=== PATIENT | male | born 1970 | race Caucasian/White ===

== ENCOUNTER → 2019-03-01 | Outpatient (CLI) | payer OTHER ==
[~2019-03-01] MED LIST: AZIT250T PO; PRED50TA PO
--- NOTE | 2019-03-01 16:21 | RAD ---
Right clavicle, 2 views, 03/01/2018: HISTORY: Old fracture There is an old fracture of the mid to distal aspect of the right clavicle with overriding of the fracture fragments. The fracture appears nonunited. No recent fracture is seen. 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 Electronically signed by: Domenico Ceja MD (03/01/2019 4:18 PM) [facility]
== END | disposition home or self-care (01) ==
LOC: PMG 10:30
PROVIDERS: ATTEND Registered Nurse
DX: S42.031K Displaced fracture of lateral end of right clavicle, subsequent encounter for fracture with nonunion (principal); X58.XXXD Exposure to other specified factors, subsequent encounter; Z87.891 Personal history of nicotine dependence
CPT/HCPCS: 73000

== ENCOUNTER 2019-03-05 00:40 | Emergency (ER) | payer OTHER ==
[~2019-03-05] VITALS: Ht 175.3 cm; Wt 69.0 kg
--- NOTE | 2019-03-05 00:47 | ED.ADGEN ---
Past History Past Medical History: Bronchitis, Pneumonia Smoking: Cigarettes Adult General Chief Complaint Chief Complaint ".. I am at the [facility].. I got thirty days.. after serving 32 yrs.in the the [facility].. .. I ve been working.. and staying clean.. so I got to go home for the holiday... but I started getting sick on. .. tuesday... wheezing.. cough, fever, chills. ..nausea... I hurt everywhere.. my legs.. I short of breath.. I just overall sick.. I usually very healthy. .. I work out every day.. played hand ball almost every day.. but. .. 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 [employer]... "..." I am pushing fluids.. ".. " I noticed my piss turned red today...." ". I just feeling really sick..." HPI HPI Patient is a 48 year old male [facility] inmate. who presents with above hx and complaints fever, chills, cough, wheezing, myalgia, arthralgia, malaise, red urine, fatigue and shortness of breath. Patient obviously having rigors, dyspneic and tachycardic. Patient states he is normally very healthy. The patient's state he worked out every day in intermediate. . Has traveled multiple presents the past 32 years. No history of HIV or immunosuppression. No specific ill contacts. He has never had any history of kidney stones. No hx of coagulopathy with him or family members. There is no family history kidney stones with father was in the 60s. No history of cardiac disease. Patient takes no medications. Patient does smoke tobacco. Patient denies any illicit drug or alcohol use. Patient denies any trauma. Review of Systems Review of Systems Constitutional: Complains fever or chills [] Eyes: Denies change in visual acuity, redness, or eye pain [] HENT: Mild nasal congestion and sore throat [] Respiratory: Complains of cough that is productive and he has shortness of breath [] Cardiovascular: No additional information not addressed in HPI [] GI: Denies abdominal pain, nausea, vomiting, bloody stools or diarrhea [] : Denies dysuria or hematuria [] Musculoskeletal: Complains of generalized back pain , joint pain []and muscle pain. Feeling weak all over. Integument: Denies rash or skin lesions [] Neurologic: Denies headache, focal weakness or sensory changes [] Endocrine: Denies polyuria or polydipsia [] All other systems were reviewed and found to be within normal limits, except as documented in this note. Family History Family History Father renal stones , cardiac 60's in wheel chair. Current Medications Current Medications Current Medications Medications (Trade) Dose Ordered Sig/Dana Start Time Stop Time Status Last Admin Dose Admin Albuterol/ Ipratropium (Duoneb) 3 ml 1X ONCE 03/05/19 01:00 03/05/19 01:53 DC 03/05/19 01:27 3 ML Aspirin (Children'S Aspirin) 324 mg 1X ONCE 03/05/19 01:00 03/05/19 01:54 DC 03/05/19 02:24 324 MG Azithromycin (Zithromax) 500 mg 1X ONCE 03/05/19 01:30 03/05/19 01:54 DC 03/05/19 02:24 500 MG Ceftriaxone Sodium 1 gm/ Sodium Chloride 50 ml @ 100 mls/hr 1X ONCE 03/05/19 02:00 03/05/19 02:29 DC 03/05/19 02:24 100 MLS/HR Ceftriaxone Sodium (Rocephin) 1 gm STK-MED ONCE 03/05/19 02:18 03/05/19 02:19 DC Ketorolac Tromethamine (Toradol 15mg Vial) 15 mg STK-MED ONCE 03/05/19 02:19 03/05/19 02:20 DC Ketorolac Tromethamine (Toradol 30mg Vial) 30 mg 1X ONCE 03/05/19 01:00 03/05/19 01:54 DC 03/05/19 01:00 30 MG Lactated Ringer's 1,000 ml @ 1,000 mls/hr Q1H 03/05/19 01:00 03/05/19 01:59 DC 03/05/19 02:22 1,000 MLS/HR Methylprednisolone Sodium Succinate (SOLU-Medrol 125MG VIAL) 125 mg 1X ONCE 03/05/19 01:00 03/05/19 01:54 DC 03/05/19 02:23 125 MG Sodium Chloride 50 ml @ As Directed STK-MED ONCE 03/05/19 02:18 03/05/19 02:19 DC See Nursing for home meds Allergies Allergies PCN- Physical Exam Physical Exam Constitutional: Well developed, well nourished, in acute distress, ill appearance. []Chills and rigors. HENT: Normocephalic, atraumatic, bilateral external ears normal, oropharynx moist, mild pharyngeal injection, no oral exudates, nose mild clear rhinorrhea. Eyes: PERRLA, EOMI, conjunctiva normal, no discharge. [] Neck: Normal range of motion, no tenderness, supple, no stridor. [] Cardiovascular:Tachycardia, Heart rate, regular rhythm, no murmur [] Lungs & Thorax: Bilateral breath sounds equal apexes with few scattered wheezes on auscultation [] Abdomen: Bowel sounds normal, soft, no tenderness, no masses, no pulsatile masses. [] Skin: Warm, diaphoretic, no erythema, no rash. Multiple tattoos. Back: No tenderness, no CVA tenderness. [] Extremities: Generalize muscle tenderness, no cyanosis, no clubbing, ROM intact, no edema. [] Neurologic: Alert and oriented X 3, normal motor function, normal sensory function, no focal deficits noted. [] Psychologic: Affect anxious, judgement normal, mood normal. [] Current Patient Data Vital Signs Vital Signs Date Time Temp Pulse Resp B/P (MAP) Pulse Ox O2 Delivery O2 Flow Rate FiO2 03/05/19 02:00 121 22 115/79 (91) 98 Room Air 03/05/19 00:40 99.2 Lab Results Laboratory Tests Test 03/05/19 01:05 03/05/19 01:15 03/05/19 01:25 03/05/19 01:30 Urine Collection Type Unknown Urine Color Yellow Urine Clarity Clear Urine pH 5.5 Urine Specific [place] >=1.030 Urine Protein 100 mg/dl (NEG-TRACE) Urine Glucose (UA) Neg mg/dL (NEG) Urine Ketones (Stick) Neg mg/dL (NEG) Urine Blood Neg (NEG) Urine Nitrite Neg (NEG) Urine Bilirubin Neg (NEG) Urine Urobilinogen Dipstick 1 mg/dL (0.2 mg/dL) Urine Leukocyte Esterase Neg (NEG) Urine RBC 0 /HPF (0-2) Urine WBC Occ /HPF (0-4) Urine Squamous Epithelial Cells Occ /LPF Urine Bacteria 0 /HPF (0-FEW) Urine Mucus Slight /LPF Urine Opiates Screen Neg (NEG) Urine Methadone Screen Neg (NEG) Urine Barbiturates Neg (NEG) Urine Phencyclidine Screen Neg (NEG) Urine Amphetamine/Methamphetamine Neg (NEG) Urine Benzodiazepines Screen Neg (NEG) Urine Cocaine Screen Neg (NEG) Urine Cannabinoids Screen Pos (NEG) Urine Ethyl Alcohol Neg (NEG) White Blood Count 13.6 x10^3/uL (4.0-11.0) H Red Blood Count 5.01 x10^6/uL (4.30-5.70) Hemoglobin 14.9 g/dL (13.0-17.5) Hematocrit 44.3 % (39.0-53.0) Mean Corpuscular Volume 88 fL (79-100) Mean Corpuscular Hemoglobin 30 pg (25-35) Mean Corpuscular Hemoglobin Concent 34 g/dL (31-37) Red Cell Distribution Width 13.7 % (11.5-14.5) Platelet Count 279 x10^3/uL (140-400) Neutrophils (%) (Auto) 75 % (31-73) H Lymphocytes (%) (Auto) 9 % (24-48) L Monocytes (%) (Auto) 16 % (0-9) H Eosinophils (%) (Auto) 0 % (0-3) Basophils (%) (Auto) 0 % (0-3) Neutrophils # (Auto) 10.2 x10^3uL (1.8-7.7) H Lymphocytes # (Auto) 1.3 x10^3/uL (1.0-4.8) Monocytes # (Auto) 2.1 x10^3/uL (0.0-1.1) H Eosinophils # (Auto) 0.0 x10^3/uL (0.0-0.7) Basophils # (Auto) 0.0 x10^3/uL (0.0-0.2) Prothrombin Time 11.0 SEC (9.4-11.4) Prothrombin Time INR 1.1 (0.9-1.1) D-Dimer (Lyndsey) 0.67 mg/L (0.00-0.50) H Sodium Level 129 mmol/L (136-145) L Potassium Level 4.1 mmol/L (3.5-5.1) Chloride Level 93 mmol/L (98-107) L Carbon Dioxide Level 20 mmol/L (21-32) L Anion Gap 16 (6-14) H Blood Urea Nitrogen 23 mg/dL (8-26) Creatinine 1.2 mg/dL (0.7-1.3) Estimated GFR (Cockcroft-Gault) 64.4 Glucose Level 114 mg/dL (70-99) H Lactic Acid Level 1.7 mmol/L (0.4-2.0) Calcium Level 9.6 mg/dL (8.5-10.1) Magnesium Level 1.9 mg/dL (1.8-2.4) Total Bilirubin 1.1 mg/dL (0.2-1.0) H Direct Bilirubin 0.3 mg/dL (0.0-0.2) H Aspartate Amino Transferase (AST) 59 U/L (15-37) H Alanine Aminotransferase (ALT) 96 U/L (16-63) H Alkaline Phosphatase 103 U/L (46-116) Creatine Kinase 400 U/L (39-308) H Troponin I Quantitative < 0.017 ng/mL (0-0.055) RE-Lyx-B-Type Natriuretic Peptide 146 pg/mL (0-124) H Total Protein 7.9 g/dL (6.4-8.2) Albumin 3.9 g/dL (3.4-5.0) Lipase 92 U/L (73-393) Heterophil Agglutinins Negative (NEGATIVE) Influenza Type A (Rapid) Negative (NEGATIVE) Influenza Type B (Rapid) Negative (NEGATIVE) Group A Streptococcus Rapid Negative (NEGATIVE) EKG EKG My interpretation EKG shows a sinus tachycardia at 126 bpm. Does have anterior lateral strain pattern.[] Radiology/Procedures Radiology/Procedures My interpretation of chest x-ray shows bilateral hilar adenopathy and pulmonary bronchial airways. Consult persistent bronchial pneumonia. [][address] [address] IMAGING REPORT Signed PATIENT: YOJANA IVERSON ACCOUNT: [id number] : 1970 LOCATION: [facility] AGE: 48 SEX: M EXAM STATUS: ADM IN ORD. PHYSICIAN: MAGUI JONES MD REASON: DYSPNEA, COUGH PROCEDURE: CT ANGIOGRAPHY CHEST EXAM: CT chest with contrast - pulmonary embolus protocol CLINICAL HISTORY: Dyspnea, cough. COMPARISON: 03/05/2019 TECHNIQUE: CT of the chest following the administration of intravenous contrast during the pulmonary arterial phase. Axial, coronal and sagittal reformatted images were generated including MIP images. ---PQRS compliance statement - One or more of the following individualized dose reduction techniques were utilized for this study: 1. Automated exposure control 2. Adjustment of the mA and/or kV according to patient size 3. Use of iterative reconstruction technique--- FINDINGS: CHEST: Diagnostic quality: Suboptimal. Pulmonary emboli: No pulmonary emboli to the level of the lobar branches. More peripheral vessels are not well assessed. Right heart strain: None Pulmonary arteries: Normal in caliber. Heart is mildly enlarged. No pericardial effusion. No pleural effusion or pneumothorax. Bilateral tree-in-bud airspace opacities are seen. In addition wedge-shaped airspace opacities in the right middle lobe. Enlarged hilar lymph nodes are seen, measuring 1.4 x 1.2 cm. A left hilar lymph node measures 1.7 x 0.9 cm. A 2.4 x 1 cm subcarinal lymph node is seen. No pleural effusion or pneumothorax. Visualized Upper abdomen: Visualized upper abdomen is unremarkable. Bones: Left glenohumeral joint osteoarthritis. IMPRESSION: 1. Suboptimal contrast bolus timing. Within these constraints no definite pulmonary emboli to the level of the distal lobar branches. More peripheral vessels are not well assessed. 2. Multiple bilateral tree-in-bud and wedge-shaped airspace opacities are seen. These are favored to represent infectious or inflammatory process. 3. Prominent enlarged mediastinal and hilar lymph nodes likely reactive. Electronically signed by: Angel Carcamo MD (03/05/2019 3:56 AM) [facility] DICTATED AND SIGNED BY: ANGEL CARCAMO MD DATE: 03/05/19 0356 CC: MAGUI JONES MD; GUILLERMO MILLS MD; [employer]-C ~ Course & Med Decision Making Course & Med Decision Making Pertinent Labs and Imaging studies reviewed. (See chart for details) Pt. at 04:30 demand discharge. States he can not loose his job. Pt. discharged with Rx Azithromax. Prednisone Rx. Advised of risks. Pt. exhibits UCAR capacity. Is aware of risks. Pt. to use MDI two puffs four times a day. Pt to stop smoking. Return if he wishes to be admitted. [] Final Impression Final Impression 1. Fever and chills[] 2. Bronchial Pneumonia 3. Chest Pain 4. Hyponatremia 129 5. Leukocytosis 13.6 6. Elevated Jose Luis, AST, ALT 7. Elevated MONO 16 8. Elevated D-dimer 9. Marijuana and Tobacco Use 10. 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 Discharge Summary Visit Information Final Diagnosis Problems Medical Problems: (1) Bronchial pneumonia Status: Acute Brief Hospital Course Vital Signs Vital Signs Date Time Temp Pulse Resp B/P (MAP) Pulse Ox O2 Delivery O2 Flow Rate FiO2 03/05/19 02:00 121 22 115/79 (91) 98 Room Air 03/05/19 00:40 99.2 Lab Results Laboratory Tests Test 03/05/19 01:05 03/05/19 01:15 03/05/19 01:25 03/05/19 01:30 Urine Collection Type Unknown Urine Color Yellow Urine Clarity Clear Urine pH 5.5 Urine Specific [place] >=1.030 Urine Protein 100 mg/dl (NEG-TRACE) Urine Glucose (UA) Neg mg/dL (NEG) Urine Ketones (Stick) Neg mg/dL (NEG) Urine Blood Neg (NEG) Urine Nitrite Neg (NEG) Urine Bilirubin Neg (NEG) Urine Urobilinogen Dipstick 1 mg/dL (0.2 mg/dL) Urine Leukocyte Esterase Neg (NEG) Urine RBC 0 /HPF (0-2) Urine WBC Occ /HPF (0-4) Urine Squamous Epithelial Cells Occ /LPF Urine Bacteria 0 /HPF (0-FEW) Urine Mucus Slight /LPF Urine Opiates Screen Neg (NEG) Urine Methadone Screen Neg (NEG) Urine Barbiturates Neg (NEG) Urine Phencyclidine Screen Neg (NEG) Urine Amphetamine/Methamphetamine Neg (NEG) Urine Benzodiazepines Screen Neg (NEG) Urine Cocaine Screen Neg (NEG) Urine Cannabinoids Screen Pos (NEG) Urine Ethyl Alcohol Neg (NEG) White Blood Count 13.6 x10^3/uL (4.0-11.0) Red Blood Count 5.01 x10^6/uL (4.30-5.70) Hemoglobin 14.9 g/dL (13.0-17.5) Hematocrit 44.3 % (39.0-53.0) Mean Corpuscular Volume 88 fL (79-100) Mean Corpuscular Hemoglobin 30 pg (25-35) Mean Corpuscular Hemoglobin Concent 34 g/dL (31-37) Red Cell Distribution Width 13.7 % (11.5-14.5) Platelet Count 279 x10^3/uL (140-400) Neutrophils (%) (Auto) 75 % (31-73) Lymphocytes (%) (Auto) 9 % (24-48) Monocytes (%) (Auto) 16 % (0-9) Eosinophils (%) (Auto) 0 % (0-3) Basophils (%) (Auto) 0 % (0-3) Neutrophils # (Auto) 10.2 x10^3uL (1.8-7.7) Lymphocytes # (Auto) 1.3 x10^3/uL (1.0-4.8) Monocytes # (Auto) 2.1 x10^3/uL (0.0-1.1) Eosinophils # (Auto) 0.0 x10^3/uL (0.0-0.7) Basophils # (Auto) 0.0 x10^3/uL (0.0-0.2) Prothrombin Time 11.0 SEC (9.4-11.4) Prothromb Time International Ratio 1.1 (0.9-1.1) D-Dimer (Lyndsey) 0.67 mg/L (0.00-0.50) Sodium Level 129 mmol/L (136-145) Potassium Level 4.1 mmol/L (3.5-5.1) Chloride Level 93 mmol/L (98-107) Carbon Dioxide Level 20 mmol/L (21-32) Anion Gap 16 (6-14) Blood Urea Nitrogen 23 mg/dL (8-26) Creatinine 1.2 mg/dL (0.7-1.3) Estimated GFR (Cockcroft-Gault) 64.4 Glucose Level 114 mg/dL (70-99) Lactic Acid Level 1.7 mmol/L (0.4-2.0) Calcium Level 9.6 mg/dL (8.5-10.1) Magnesium Level 1.9 mg/dL (1.8-2.4) Total Bilirubin 1.1 mg/dL (0.2-1.0) Direct Bilirubin 0.3 mg/dL (0.0-0.2) Aspartate Amino Transf (AST/SGOT) 59 U/L (15-37) Alanine Aminotransferase (ALT/SGPT) 96 U/L (16-63) Alkaline Phosphatase 103 U/L (46-116) Creatine Kinase 400 U/L (39-308) Troponin I Quantitative < 0.017 ng/mL (0-0.055) FT-Nyl-Z-Type Natriuretic Peptide 146 pg/mL (0-124) Total Protein 7.9 g/dL (6.4-8.2) Albumin 3.9 g/dL (3.4-5.0) Lipase 92 U/L (73-393) Heterophil Agglutinins Negative (NEGATIVE) Influenza Type A (Rapid) Negative (NEGATIVE) Influenza Type B (Rapid) Negative (NEGATIVE) Group A Streptococcus Rapid Negative (NEGATIVE) Brief Hospital Course Mr. Iverson is a 48 old male inmate from [facility] who presented with bronchial pneumonia. Refused admission. Discharge Information Condition at Discharge: Improved Disposition/Orders: D/C to Home Dischare Medications Current Medications Aspirin (Children'S Aspirin) 324 mg 1X ONCE PO Last administered on 03/05/19at 02:24; Admin Dose 324 MG; Start 03/05/19 at 01:00; Stop 03/05/19 at 01:54; Status DC Lactated Ringer's 1,000 ml @ 1,000 mls/hr Q1H IV Last administered on 03/05/19at 02:22; Admin Dose 1,000 MLS/HR; Start 03/05/19 at 01:00; Stop 03/05/19 at 01:59; Status DC Ketorolac Tromethamine (Toradol 30mg Vial) 30 mg 1X ONCE IV Last administered on 03/05/19at 01:00; Admin Dose 30 MG; Start 03/05/19 at 01:00; Stop 03/05/19 at 01:54; Status DC Albuterol/ Ipratropium (Duoneb) 3 ml 1X ONCE NEB Last administered on 03/05/19at 01:27; Admin Dose 3 ML; Start 03/05/19 at 01:00; Stop 03/05/19 at 01:53; Status DC Methylprednisolone Sodium Succinate (SOLU-Medrol 125MG VIAL) 125 mg 1X ONCE IV Last administered on 03/05/19at 02:23; Admin Dose 125 MG; Start 03/05/19 at 01:00; Stop 03/05/19 at 01:54; Status DC Azithromycin (Zithromax) 500 mg 1X ONCE PO Last administered on 03/05/19at 02:24; Admin Dose 500 MG; Start 03/05/19 at 01:30; Stop 03/05/19 at 01:54; Status DC Ceftriaxone Sodium 1 gm/ Sodium Chloride 50 ml @ 100 mls/hr 1X ONCE IV Last administered on 03/05/19at 02:24; Admin Dose 100 MLS/HR; Start 03/05/19 at 02:00; Stop 03/05/19 at 02:29; Status DC Sodium Chloride 50 ml @ As Directed STK-MED ONCE .ROUTE ; Start 03/05/19 at 02:18; Stop 03/05/19 at 02:19; Status DC Ceftriaxone Sodium (Rocephin) 1 gm STK-MED ONCE .ROUTE ; Start 03/05/19 at 02:18; Stop 03/05/19 at 02:19; Status DC Ketorolac Tromethamine (Toradol 15mg Vial) 15 mg STK-MED ONCE .ROUTE ; Start 03/05/19 at 02:19; Stop 03/05/19 at 02:20; Status DC Active Scripts Active Zithromax (Azithromycin) 250 Mg Tablet 250 Mg PO DAILY Prednisone 50 Mg Tablet 50 Mg PO DAILY 5 Days Dragon Disclaimer This chart was dictated in whole or in part using Voice Recognition software in a busy, high-work load, and often noisy Emergency Department environment. It may contain unintended and wholly unrecognized errors or omissions. MAGUI JONES MD Mar 05, 2019 00:47
[2019-03-05] MEDS: KETOROLAC 30 MG/ML VIAL. IV ONE (01:00)
--- NOTE | 2019-03-05 01:26 | EKG ---
[address] [address] Test Date: 2019-03-05 Test Time: 01:24:25 Pat Name: YOJANA KHALIL Department: Room: Gender: M [employer] Developer: : 1970 Requested By: MAGUI JONES Order Number: [id number] Reading MD: Measurements Intervals [place] Rate: 126 P: 12 AL: 130 QRS: 82 QRSD: 80 T: 56 QT: 282 QTc: 409 Interpretive Statements SINUS TACHYCARDIA QRS(T) CONTOUR ABNORMALITY CONSIDER ANTEROLATERAL MYOCARDIAL DAMAGE CONSIDER INFERIOR MYOCARDIAL DAMAGE POSSIBLY ABNORMAL ECG RI6.01 No previous ECG available for comparison
[2019-03-05] MEDS: IPRATRPIUM/ALBUTEROL 0.5/2.5MG 3 ML NEBU. NEB ONE (01:27)
[2019-03-05 01:45] LABS: BASO % 0 % (0-3); EOS % 0 % (0-3); HEMATOCRIT 44.3 % (39.0-53.0); HEMOGLOBIN 14.9 g/dL (13.0-17.5); LYMPH # 1.3 x10^3/uL (1.0-4.8); LYMPH % 9 % (24-48); MEAN CORPUSCULAR HEMOGLOBIN 30 pg (25-35); MEAN CORPUSCULAR HGB CONC 34 g/dL (31-37); MEAN CORPUSCULAR VOLUME 88 fL (79-100); MONO # 2.1 x10^3/uL (0.0-1.1); MONO % 16 % (0-9); NEUT # 10.2 x10^3uL (1.8-7.7); NEUT % 75 % (31-73); PLATELET COUNT 279 x10^3/uL (140-400); RED BLOOD COUNT 5.01 x10^6/uL (4.30-5.70); RED CELL DISTRIBUTION WIDTH 13.7 % (11.5-14.5); WHITE BLOOD COUNT 13.6 x10^3/uL (4.0-11.0)
[2019-03-05 01:54] LABS: BACTERIA,URINE 0 /HPF (0-FEW); BILIRUBIN,URINE NEG (NEG); CLARITY,URINE CLEAR; COLOR,URINE YELLOW; GLUCOSE,URINE NEG (NEG); NITRITE,URINE NEG (NEG); RBC,URINE 0 /HPF (0-2); SQUAMOUS EPITHELIAL CELL,UR OCC /LPF; UROBILINOGEN,URINE 1 mg/dL (0.2 mg/dL); WBC,URINE OCC /HPF (0-4)
[2019-03-05 02:08] LABS: ALBUMIN 3.9 g/dL (3.4-5.0); CALCIUM 9.6 mg/dL (8.5-10.1); CREATININE 1.2 mg/dL (0.7-1.3); DIRECT BILIRUBIN 0.3 mg/dL (0.0-0.2); GFR 64.4; MAGNESIUM 1.9 mg/dL (1.8-2.4); POTASSIUM 4.1 mmol/L (3.5-5.1); TOTAL BILIRUBIN 1.1 mg/dL (0.2-1.0); TOTAL PROTEIN 7.9 g/dL (6.4-8.2)
[2019-03-05 02:14] LABS: BARBITURATES NEG (NEG); BENZODIAZEPINES NEG (NEG); CANNABINOIDS POS (NEG); COCAINE NEG (NEG); METHADONE NEG (NEG); OPIATES NEG (NEG); PHENCYCLIDINE NEG (NEG)
[2019-03-05 02:16] LABS: INFLUENZA A PATIENT NEGATIVE (NEGATIVE); INFLUENZA B PATIENT NEGATIVE (NEGATIVE)
[2019-03-05 02:16] LABS: AMPHETAMINE/METHAMPHETAMINE NEG (NEG)
[2019-03-05] MEDS ORDERED: cefTRIAXone SODIUM 1 GM VIAL ONE (02:18)
[2019-03-05] MEDS ORDERED: IV NORMAL SALINE 50ML 50 ML ONE (02:18)
[2019-03-05] MEDS ORDERED: KETOROLAC 15 MG/ML VIAL. ONE (02:19)
[2019-03-05] MEDS: IV RINGERS SOLUTION,LACTATED 1,000 ML IV SCH ×2 (02:22→06:44)
[2019-03-05] MEDS: methylPREDNISolone SOD SUCC PF 125 MG/2 ML VIAL. IV ONE (02:23)
[2019-03-05] MEDS: ASPIRIN 81 MG TAB.CHEW PO ONE (02:24)
[2019-03-05] MEDS: AZITHROMYCIN 250 MG TABLET. PO ONE (02:24)
[2019-03-05] MEDS: ASPIRIN 325 MG TABLET PO ONE (02:45)
[2019-03-05 03:03] LABS: MONONUCLEOSIS PATIENT NEGATIVE (NEGATIVE)
[2019-03-05] MEDS ORDERED: CONTRAST GIVEN MC PRN (03:15)
[2019-03-05] MEDS: IOHEXOL 350 MG/ML 100 ML VIAL. IV ONE (03:21)
[2019-03-05] MEDS ORDERED: ALBUTEROL SULFATE 8GM INHALER. ONE (03:49)
--- NOTE | 2019-03-05 03:59 | RAD ---
EXAM: CT chest with contrast - pulmonary embolus protocol CLINICAL HISTORY: Dyspnea, cough. COMPARISON: 03/05/2019 TECHNIQUE: CT of the chest following the administration of intravenous contrast during the pulmonary arterial phase. Axial, coronal and sagittal reformatted images were generated including MIP images. ---PQRS compliance statement - One or more of the following individualized dose reduction techniques were utilized for this study: 1. Automated exposure control 2. Adjustment of the mA and/or kV according to patient size 3. Use of iterative reconstruction technique--- FINDINGS: CHEST: Diagnostic quality: Suboptimal. Pulmonary emboli: No pulmonary emboli to the level of the lobar branches. More peripheral vessels are not well assessed. Right heart strain: None Pulmonary arteries: Normal in caliber. Heart is mildly enlarged. No pericardial effusion. No pleural effusion or pneumothorax. Bilateral tree-in-bud airspace opacities are seen. In addition wedge-shaped airspace opacities in the right middle lobe. Enlarged hilar lymph nodes are seen, measuring 1.4 x 1.2 cm. A left hilar lymph node measures 1.7 x 0.9 cm. A 2.4 x 1 cm subcarinal lymph node is seen. No pleural effusion or pneumothorax. Visualized Upper abdomen: Visualized upper abdomen is unremarkable. Bones: Left glenohumeral joint osteoarthritis. IMPRESSION: 1. Suboptimal contrast bolus timing. Within these constraints no definite pulmonary emboli to the level of the distal lobar branches. More peripheral vessels are not well assessed. 2. Multiple bilateral tree-in-bud and wedge-shaped airspace opacities are seen. These are favored to represent infectious or inflammatory process. 3. Prominent enlarged mediastinal and hilar lymph nodes likely reactive. Electronically signed by: Angel Mendoza MD (03/05/2019 3:56 AM) [place] [id number]
[2019-03-05] MEDS: ENOXAPARIN ** NOTE DOSE ** SYRINGE SQ ONE (04:03)
[2019-03-05] MEDS: IV RINGERS SOLUTION,LACTATED 1,000 ML IV ONE (04:03)
[2019-03-05] MEDS: SODIUM BICARB ADULT 8.4% 50 MEQ/50 ML DISP.SYRIN. IV ONE (04:03)
[2019-03-05] MEDS ORDERED: PRED50TA PO (04:22)
[2019-03-05] MEDS ORDERED: AZIT250T PO (04:24)
[2019-03-05] MEDS ORDERED: ALBUTEROL SULFATE 8GM INHALER. INH ONE (04:30)
[2019-03-05 05:25] VITALS: BP 141/86
[2019-03-05] MEDS: AZITHROMYCIN 250 MG TABLET. PO SCH (06:43)
[2019-03-05] MEDS: methylPREDNISolone SOD SUCC PF 40 MG/ML VIAL. IV SCH (06:43)
[2019-03-05] MEDS: IPRATRPIUM/ALBUTEROL 0.5/2.5MG 3 ML NEBU. NEB SCH (06:43)
[2019-03-05] MEDS: ACETAMINOPHEN 325 MG TABLET PO PRN (06:44)
[2019-03-05] MEDS: ONDANSETRON PF 4 MG/2 ML VIAL. IV PRN (06:44)
--- NOTE | 2019-03-05 08:16 | RAD ---
Chest radiograph 03/05/2019 12:47 AM INDICATION: Dyspnea COMPARISON: None available TECHNIQUE: Frontal and lateral views of the chest are provided. FINDINGS: The cardiomediastinal silhouette is within normal limits. There are no pleural effusions. There is no pulmonary vascular congestion. There is no pneumothorax. Tree-in-bud nodular airspace disease identified in the right upper lobe and to lesser extent in the right lower lobe. No significant osseous abnormality is identified. IMPRESSION: Findings are suggestive of pulmonary infiltrate in the right upper lobe with possible involvement of the right lower lobe. Electronically signed by: Romina Golden MD (03/05/2019 8:13 AM) [id number]
[2019-03-08 20:06] LABS: HCV ULTRA QUANT PCR 81200 IU/mL (.)
== END 2019-03-05 05:25 | disposition home or self-care (01) ==
LOC: ER 00:40 → UNDOADMIN 02:30 → 1 SOUTH 02:30 → ER 05:25
DX: J18.0 Bronchopneumonia, unspecified organism (principal); E87.1 Hypo-osmolality and hyponatremia; D72.829 Elevated white blood cell count, unspecified; R79.1 Abnormal coagulation profile; M84.411A Pathological fracture, right shoulder, initial encounter for fracture; D72.821 Monocytosis (symptomatic); E80.7 Disorder of bilirubin metabolism, unspecified; R74.0 Nonspecific elevation of levels of transaminase and lactic acid dehydrogenase [LDH]; F12.90 Cannabis use, unspecified, uncomplicated; F17.210 Nicotine dependence, cigarettes, uncomplicated; Z79.82 Long term (current) use of aspirin; Z79.899 Other long term (current) drug therapy
CPT/HCPCS: 36415; 71046; 71275; 80048; 80076; 80307; 81001; 82550; 83605; 83690; 83735; 83880; 84443; 84484; 85025; 85379; 85610; 86308; 86703; 86705; 86709; 86803; 87040; 87070; 87340; 87521; 87804; 87880; 93005; 94640; 96365; 96366; 96372; 96375; 99285; J0456; J0696; J1650; J1885; J2930; J7120; J7620; Q9967

== ENCOUNTER 2019-04-05 20:55 | Emergency (ER) | payer OTHER ==
[~2019-04-05] VITALS: Ht 175.3 cm; Wt 69.0 kg
--- NOTE | 2019-04-05 20:59 | ED.ADGEN ---
Past History Past Medical History: Bronchitis, Pneumonia Past Surgical History: Tonsillectomy Smoking: Cigarettes Alcohol Use: None Drug Use: None Adult General Chief Complaint Chief Complaint ".. I am coughing again.. I have reduced my smoking to 1/2 pack.. but I cough up shit again... 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 Patient seen previously with COPD exacerbation and complaints suspect bronchopneumonia. Patient has reduced his smoking. Patient did complete his previous antibiotics. Still complaining of some fever and chills. Does have rhonchi and wheezing on exam. Some localization of rhonchi in left lower lobe. No recent travel. No specific ill contacts. Denies any intake bad food. Patient states diarrhea started after his last course of Zithromax Review of Systems Review of Systems Constitutional: History of fever and chills Eyes: Denies change in visual acuity, redness, or eye pain [] HENT: Denies nasal congestion or sore throat [] Respiratory: History of cough and wheezing Cardiovascular: No additional information not addressed in HPI [] GI: Denies abdominal pain, nausea, vomiting, bloody stools or diarrhea [] : Denies dysuria or hematuria [] Musculoskeletal: Denies back pain or joint pain [] Integument: Denies rash or skin lesions [] Neurologic: Denies headache, focal weakness or sensory changes [] Endocrine: Denies polyuria or polydipsia [] All other systems were reviewed and found to be within normal limits, except as documented in this note. Family History Family History Noncontributory Current Medications Current Medications Current Medications Medications (Trade) Dose Ordered Sig/Dana Start Time Stop Time Status Last Admin Dose Admin Albuterol Sulfate (Ventolin Hfa Inhaler) 2 puff 1X ONCE 04/05/19 21:30 04/05/19 21:31 DC 04/05/19 21:26 2 PUFF Doxycycline Hyclate (Vibra-Tab) 100 mg 1X ONCE 04/05/19 21:30 04/05/19 21:31 DC 04/05/19 21:26 100 MG Famotidine (Pepcid Vial) 20 mg 1X ONCE 04/05/19 21:15 04/05/19 21:16 DC 04/05/19 21:26 20 MG Ketorolac Tromethamine (Toradol 30mg Vial) 30 mg 1X ONCE 04/05/19 21:15 04/05/19 21:16 DC 04/05/19 21:25 30 MG Lactated Ringer's 1,000 ml @ 1,000 mls/hr Q1H 04/05/19 21:00 04/05/19 21:59 DC 04/05/19 21:24 1,000 MLS/HR Methylprednisolone Sodium Succinate (SOLU-Medrol 125MG VIAL) 125 mg 1X ONCE 04/05/19 21:30 04/05/19 21:31 DC 04/05/19 21:26 125 MG Ondansetron HCl (Zofran) 8 mg 1X ONCE 04/05/19 21:15 04/05/19 21:16 DC 04/05/19 21:26 8 MG Allergies Allergies Allergies Coded Allergies Type Severity Reaction Last Updated Verified Penicillins Allergy Intermediate Unknown 03/05/19 Yes Physical Exam Physical Exam Constitutional: Well developed, well nourished, no acute distress, non-toxic appearance. [] HENT: Normocephalic, atraumatic, bilateral external ears normal, oropharynx moist, no oral exudates, nose normal. [] Eyes: PERRLA, EOMI, conjunctiva normal, no discharge. [] Neck: Normal range of motion, no tenderness, supple, no stridor. [] Cardiovascular: Tachycardia Heart rate regular rhythm, no murmur [] Lungs & Thorax: Bilateral breath sounds equal with scattered wheezes and rhonchi. Some localization and right lower lung sheldon for rhonchi. Has occasionally have coughing spasms Abdomen: Bowel sounds normal, soft, no tenderness, no masses, no pulsatile masses. [] Skin: Warm, dry, no erythema, no rash. [] Diaphoretic Back: No tenderness, no CVA tenderness. [] Extremities: No tenderness, no cyanosis, no clubbing, ROM intact, no edema. [] Neurologic: Alert and oriented X 3, normal motor function, normal sensory function, no focal deficits noted. [] Psychologic: Affect anxious, judgement normal, mood normal. [] Current Patient Data Vital Signs Vital Signs Date Time Temp Pulse Resp B/P (MAP) Pulse Ox O2 Delivery O2 Flow Rate FiO2 04/05/19 22:03 90 18 121/78 (92) 97 Room Air 04/05/19 21:10 98.3 Lab Results Laboratory Tests Test 04/05/19 21:11 White Blood Count 9.3 x10^3/uL (4.0-11.0) Red Blood Count 4.91 x10^6/uL (4.30-5.70) Hemoglobin 14.6 g/dL (13.0-17.5) Hematocrit 43.9 % (39.0-53.0) Mean Corpuscular Volume 89 fL (79-100) Mean Corpuscular Hemoglobin 30 pg (25-35) Mean Corpuscular Hemoglobin Concent 33 g/dL (31-37) Red Cell Distribution Width 14.8 % (11.5-14.5) H Platelet Count 394 x10^3/uL (140-400) Neutrophils (%) (Auto) 67 % (31-73) Lymphocytes (%) (Auto) 23 % (24-48) L Monocytes (%) (Auto) 10 % (0-9) H Eosinophils (%) (Auto) 0 % (0-3) Basophils (%) (Auto) 1 % (0-3) Neutrophils # (Auto) 6.2 x10^3uL (1.8-7.7) Lymphocytes # (Auto) 2.1 x10^3/uL (1.0-4.8) Monocytes # (Auto) 0.9 x10^3/uL (0.0-1.1) Eosinophils # (Auto) 0.0 x10^3/uL (0.0-0.7) Basophils # (Auto) 0.1 x10^3/uL (0.0-0.2) Prothrombin Time 10.5 SEC (9.4-11.4) Prothrombin Time INR 1.0 (0.9-1.1) PTT 27 SEC (23-33) D-Dimer (Lyndsey) 0.32 mg/L (0.00-0.50) Urine Collection Type Unknown Urine Color Yellow Urine Clarity Hazy Urine pH 6.0 Urine Specific [place] 1.025 Urine Protein Trace (NEG-TRACE) Urine Glucose (UA) Neg mg/dL (NEG) Urine Ketones (Stick) Neg mg/dL (NEG) Urine Blood Neg (NEG) Urine Nitrite Neg (NEG) Urine Bilirubin Neg (NEG) Urine Urobilinogen Dipstick 1 mg/dL (0.2 mg/dL) Urine Leukocyte Esterase Neg (NEG) Urine RBC 0 /HPF (0-2) Urine WBC Occ /HPF (0-4) Urine Squamous Epithelial Cells Occ /LPF Urine Bacteria 0 /HPF (0-FEW) Sodium Level 136 mmol/L (136-145) Potassium Level 4.4 mmol/L (3.5-5.1) Chloride Level 99 mmol/L (98-107) Carbon Dioxide Level 24 mmol/L (21-32) Anion Gap 13 (6-14) Blood Urea Nitrogen 12 mg/dL (8-26) Creatinine 0.9 mg/dL (0.7-1.3) Estimated GFR (Cockcroft-Gault) 89.7 Glucose Level 107 mg/dL (70-99) H Calcium Level 9.6 mg/dL (8.5-10.1) Total Bilirubin 0.6 mg/dL (0.2-1.0) Direct Bilirubin 0.2 mg/dL (0.0-0.2) Aspartate Amino Transferase (AST) 69 U/L (15-37) H Alanine Aminotransferase (ALT) 132 U/L (16-63) H Alkaline Phosphatase 116 U/L (46-116) Creatine Kinase 176 U/L (39-308) Troponin I Quantitative < 0.017 ng/mL (0-0.055) Total Protein 7.7 g/dL (6.4-8.2) Albumin 3.9 g/dL (3.4-5.0) Lipase 69 U/L (73-393) L Urine Opiates Screen Neg (NEG) Urine Methadone Screen Neg (NEG) Urine Barbiturates Neg (NEG) Urine Phencyclidine Screen Neg (NEG) Urine Amphetamine/Methamphetamine Neg (NEG) Urine Benzodiazepines Screen Neg (NEG) Urine Cocaine Screen Neg (NEG) Urine Cannabinoids Screen Neg (NEG) Urine Ethyl Alcohol Neg (NEG) EKG EKG My interpretation EKG is sinus tach cardia anterior lateral changes. No findings acute STEMI of contralateral changes.[] Radiology/Procedures Radiology/Procedures [][address] [address] IMAGING REPORT Signed PATIENT: YOJANA IVERSON ACCOUNT: [id number] : 1970 LOCATION: 1 SOUTH AGE: 48 SEX: M EXAM STATUS: ADM IN ORD. PHYSICIAN: MAGUI JONES MD REASON: DYSPNEA, COUGH PROCEDURE: CT ANGIOGRAPHY CHEST EXAM: CT chest with contrast - pulmonary embolus protocol CLINICAL HISTORY: Dyspnea, cough. COMPARISON: 03/05/2019 TECHNIQUE: CT of the chest following the administration of intravenous contrast during the pulmonary arterial phase. Axial, coronal and sagittal reformatted images were generated including MIP images. ---PQRS compliance statement - One or more of the following individualized dose reduction techniques were utilized for this study: 1. Automated exposure control 2. Adjustment of the mA and/or kV according to patient size 3. Use of iterative reconstruction technique--- FINDINGS: CHEST: Diagnostic quality: Suboptimal. Pulmonary emboli: No pulmonary emboli to the level of the lobar branches. More peripheral vessels are not well assessed. Right heart strain: None Pulmonary arteries: Normal in caliber. Heart is mildly enlarged. No pericardial effusion. No pleural effusion or pneumothorax. Bilateral tree-in-bud airspace opacities are seen. In addition wedge-shaped airspace opacities in the right middle lobe. Enlarged hilar lymph nodes are seen, measuring 1.4 x 1.2 cm. A left hilar lymph node measures 1.7 x 0.9 cm. A 2.4 x 1 cm subcarinal lymph node is seen. No pleural effusion or pneumothorax. Visualized Upper abdomen: Visualized upper abdomen is unremarkable. Bones: Left glenohumeral joint osteoarthritis. IMPRESSION: 1. Suboptimal contrast bolus timing. Within these constraints no definite pulmonary emboli to the level of the distal lobar branches. More peripheral vessels are not well assessed. 2. Multiple bilateral tree-in-bud and wedge-shaped airspace opacities are seen. These are favored to represent infectious or inflammatory process. 3. Prominent enlarged mediastinal and hilar lymph nodes likely reactive. Electronically signed by: Angel Carcamo MD (03/05/2019 3:56 AM) [facility] [id number] DICTATED AND SIGNED BY: ANEGL CARCAMO MD DATE: 03/05/19 0356 CC: MAGUI JONES MD; GUILLERMO MILLS MD; [employer] ~ Impressions: [address] [address] IMAGING REPORT Signed PATIENT: YOJANA IVERSON ACCOUNT: [id number] : 1970 LOCATION: ER AGE: 48 SEX: M EXAM STATUS: REG ER ORD. PHYSICIAN: MAGUI JONES MD REASON: Cough, congestion PROCEDURE: CHEST PA & LATERAL Exam: Chest 2 views abdomen 2 views INDICATION: Abdomen pain, cough TECHNIQUE: Frontal and lateral views of the chest. Upright and supine views of the abdomen Comparisons: None FINDINGS: The cardiomediastinal silhouette and pulmonary vessels are within normal limits. Patchy airspace disease in the lingula. Remaining lungs are clear. Air and stool are seen throughout the colon to the level of the rectum in a nonobstructive bowel gas pattern. IMPRESSION: 1. Airspace disease in the lingula favored to represent pneumonia. 2. Nonobstructive bowel gas pattern. Electronically signed by: Eric Salomon MD (04/05/2019 9:29 PM) [facility] DICTATED AND SIGNED BY: ERIC SALOMON MD DATE: 04/05/192128 CC: MAGUI JONES MD; [employer] ~ [address] [address] IMAGING REPORT Signed PATIENT: YOJANA IVERSON ACCOUNT: [id number] : 1970 LOCATION: ER AGE: 48 SEX: M EXAM STATUS: REG ER ORD. PHYSICIAN: MAGUI JONES MD REASON: Cough, congestion PROCEDURE: CHEST PA & LATERAL Exam: Chest 2 views abdomen 2 views INDICATION: Abdomen pain, cough TECHNIQUE: Frontal and lateral views of the chest. Upright and supine views of the abdomen Comparisons: None FINDINGS: The cardiomediastinal silhouette and pulmonary vessels are within normal limits. Patchy airspace disease in the lingula. Remaining lungs are clear. Air and stool are seen throughout the colon to the level of the rectum in a nonobstructive bowel gas pattern. IMPRESSION: 1. Airspace disease in the lingula favored to represent pneumonia. 2. Nonobstructive bowel gas pattern. Electronically signed by: Eric Salomon MD (04/05/2019 9:29 PM) [facility] DICTATED AND SIGNED BY: ERIC SALOMON MD DATE: 04/05/192128 CC: MAGUI JONES MD; [employer]C ~ [place] [address] IMAGING REPORT Signed PATIENT: YOJANA IVERSON ACCOUNT: [id number] : 1970 LOCATION: ER AGE: 48 SEX: M EXAM STATUS: REG ER ORD. PHYSICIAN: MAGUI JONES MD REASON: Cough, congestion PROCEDURE: CHEST PA & LATERAL Exam: Chest 2 views abdomen 2 views INDICATION: Abdomen pain, cough TECHNIQUE: Frontal and lateral views of the chest. Upright and supine views of the abdomen Comparisons: None FINDINGS: The cardiomediastinal silhouette and pulmonary vessels are within normal limits. Patchy airspace disease in the lingula. Remaining lungs are clear. Air and stool are seen throughout the colon to the level of the rectum in a nonobstructive bowel gas pattern. IMPRESSION: 1. Airspace disease in the lingula favored to represent pneumonia. 2. Nonobstructive bowel gas pattern. Electronically signed by: Eric Salomon MD (04/05/2019 9:29 PM) [facility] DICTATED AND SIGNED BY: ERIC SALOMON MD DATE: 04/05/192128 CC: MAGUI JONES MD; [employer] ~ Course & Med Decision Making Course & Med Decision Making Pertinent Labs and Imaging studies reviewed. (See chart for details) Did review his prior CT Patient continue doxycycline 100 mg twice a day. Patient take prednisone 50 mg a day. Patient take MDI 2 puffs 4 times a day. Patient follow-up primary care. Patient strongly encouraged to stop smoking. Patient still declines admission [] Final Impression Final Impression 1. Cough 2. Lingula Pneumonia 3. COPD[] 4. Elevated LFT AST 69/ALt 132 5 Tobacco Use Dragon Disclaimer Dragon Disclaimer This electronic medical record was generated, in whole or in part, using a voice recognition dictation system. Discharge Summary Visit Information Final Diagnosis Problems Medical Problems: (1) COPD (chronic obstructive pulmonary disease) Status: Acute (2) Pneumonia Status: Acute Brief Hospital Course Allergies Allergies Coded Allergies Type Severity Reaction Last Updated Verified Penicillins Allergy Intermediate Unknown 03/05/19 Yes Vital Signs Vital Signs Date Time Temp Pulse Resp B/P (MAP) Pulse Ox O2 Delivery O2 Flow Rate FiO2 04/05/19 22:03 90 18 121/78 (92) 97 Room Air 04/05/19 21:10 98.3 Lab Results Laboratory Tests Test 04/05/19 21:11 White Blood Count 9.3 x10^3/uL (4.0-11.0) Red Blood Count 4.91 x10^6/uL (4.30-5.70) Hemoglobin 14.6 g/dL (13.0-17.5) Hematocrit 43.9 % (39.0-53.0) Mean Corpuscular Volume 89 fL (79-100) Mean Corpuscular Hemoglobin 30 pg (25-35) Mean Corpuscular Hemoglobin Concent 33 g/dL (31-37) Red Cell Distribution Width 14.8 % (11.5-14.5) Platelet Count 394 x10^3/uL (140-400) Neutrophils (%) (Auto) 67 % (31-73) Lymphocytes (%) (Auto) 23 % (24-48) Monocytes (%) (Auto) 10 % (0-9) Eosinophils (%) (Auto) 0 % (0-3) Basophils (%) (Auto) 1 % (0-3) Neutrophils # (Auto) 6.2 x10^3uL (1.8-7.7) Lymphocytes # (Auto) 2.1 x10^3/uL (1.0-4.8) Monocytes # (Auto) 0.9 x10^3/uL (0.0-1.1) Eosinophils # (Auto) 0.0 x10^3/uL (0.0-0.7) Basophils # (Auto) 0.1 x10^3/uL (0.0-0.2) Prothrombin Time 10.5 SEC (9.4-11.4) Prothromb Time International Ratio 1.0 (0.9-1.1) Activated Partial Thromboplast Time 27 SEC (23-33) D-Dimer (Lyndsey) 0.32 mg/L (0.00-0.50) Urine Collection Type Unknown Urine Color Yellow Urine Clarity Hazy Urine pH 6.0 Urine Specific [place] 1.025 Urine Protein Trace (NEG-TRACE) Urine Glucose (UA) Neg mg/dL (NEG) Urine Ketones (Stick) Neg mg/dL (NEG) Urine Blood Neg (NEG) Urine Nitrite Neg (NEG) Urine Bilirubin Neg (NEG) Urine Urobilinogen Dipstick 1 mg/dL (0.2 mg/dL) Urine Leukocyte Esterase Neg (NEG) Urine RBC 0 /HPF (0-2) Urine WBC Occ /HPF (0-4) Urine Squamous Epithelial Cells Occ /LPF Urine Bacteria 0 /HPF (0-FEW) Sodium Level 136 mmol/L (136-145) Potassium Level 4.4 mmol/L (3.5-5.1) Chloride Level 99 mmol/L (98-107) Carbon Dioxide Level 24 mmol/L (21-32) Anion Gap 13 (6-14) Blood Urea Nitrogen 12 mg/dL (8-26) Creatinine 0.9 mg/dL (0.7-1.3) Estimated GFR (Cockcroft-Gault) 89.7 Glucose Level 107 mg/dL (70-99) Calcium Level 9.6 mg/dL (8.5-10.1) Total Bilirubin 0.6 mg/dL (0.2-1.0) Direct Bilirubin 0.2 mg/dL (0.0-0.2) Aspartate Amino Transf (AST/SGOT) 69 U/L (15-37) Alanine Aminotransferase (ALT/SGPT) 132 U/L (16-63) Alkaline Phosphatase 116 U/L (46-116) Creatine Kinase 176 U/L (39-308) Troponin I Quantitative < 0.017 ng/mL (0-0.055) Total Protein 7.7 g/dL (6.4-8.2) Albumin 3.9 g/dL (3.4-5.0) Lipase 69 U/L (73-393) Urine Opiates Screen Neg (NEG) Urine Methadone Screen Neg (NEG) Urine Barbiturates Neg (NEG) Urine Phencyclidine Screen Neg (NEG) Urine Amphetamine/Methamphetamine Neg (NEG) Urine Benzodiazepines Screen Neg (NEG) Urine Cocaine Screen Neg (NEG) Urine Cannabinoids Screen Neg (NEG) Urine Ethyl Alcohol Neg (NEG) Brief Hospital Course Mr. Iverson is a 48 old male who presented with bronchitis and lingular pneumonia Discharge Information Condition at Discharge: Improved, Stable Disposition/Orders: D/C to Home Dischare Medications Current Medications Lactated Ringer's 1,000 ml @ 1,000 mls/hr Q1H IV Last administered on 04/05/19at 21:24; Admin Dose 1,000 MLS/HR; Start 04/05/19 at 21:00; Stop 04/05/19 at 21:59; Status DC Ondansetron HCl (Zofran) 8 mg 1X ONCE IV Last administered on 04/05/19at 21:26; Admin Dose 8 MG; Start 04/05/19 at 21:15; Stop 04/05/19 at 21:16; Status DC Famotidine (Pepcid Vial) 20 mg 1X ONCE IVP Last administered on 04/05/19at 21:26; Admin Dose 20 MG; Start 04/05/19 at 21:15; Stop 04/05/19 at 21:16; Status DC Ketorolac Tromethamine (Toradol 30mg Vial) 30 mg 1X ONCE IV Last administered on 04/05/19at 21:25; Admin Dose 30 MG; Start 04/05/19 at 21:15; Stop 04/05/19 at 21:16; Status DC Albuterol Sulfate (Ventolin Hfa Inhaler) 2 puff 1X ONCE INH Last administered on 04/05/19at 21:26; Admin Dose 2 PUFF; Start 04/05/19 at 21:30; Stop 04/05/19 at 21:31; Status DC Methylprednisolone Sodium Succinate (SOLU-Medrol 125MG VIAL) 125 mg 1X ONCE IV Last administered on 04/05/19at 21:26; Admin Dose 125 MG; Start 04/05/19 at 21:30; Stop 04/05/19 at 21:31; Status DC Doxycycline Hyclate (Vibra-Tab) 100 mg 1X ONCE PO Last administered on 04/05/19at 21:26; Admin Dose 100 MG; Start 04/05/19 at 21:30; Stop 04/05/19 at 21:31; Status DC Active Scripts Active Prednisone 50 Mg Tablet 50 Mg PO DAILY 5 Days Doxycycline Hyclate 100 Mg Tablet.dr 100 Mg PO BID 14 Days Zithromax (Azithromycin) 250 Mg Tablet 250 Mg PO DAILY Prednisone 50 Mg Tablet 50 Mg PO DAILY 5 Days Slava Disclaimer This chart was dictated in whole or in part using Voice Recognition software in a busy, high-work load, and often noisy Emergency Department environment. It may contain unintended and wholly unrecognized errors or omissions. MAGUI JONES MD Apr 05, 2019 20:59
[2019-04-05] MEDS ORDERED: IV RINGERS SOLUTION,LACTATED 1,000 ML IV SCH (21:00)
[2019-04-05] MEDS ORDERED: FAMOTIDINE 20 MG/2 ML VIAL IVP ONE (21:15)
[2019-04-05] MEDS ORDERED: ONDANSETRON PF 4 MG/2 ML VIAL. IV ONE (21:15)
[2019-04-05] MEDS ORDERED: KETOROLAC 30 MG/ML VIAL. IV ONE (21:15)
[2019-04-05 21:27] LABS: BACTERIA,URINE 0 /HPF (0-FEW); BASO # 0.1 x10^3/uL (0.0-0.2); BASO % 1 % (0-3); BILIRUBIN,URINE NEG (NEG); CLARITY,URINE HAZY; COLOR,URINE YELLOW; EOS % 0 % (0-3); GLUCOSE,URINE NEG (NEG); HEMATOCRIT 43.9 % (39.0-53.0); HEMOGLOBIN 14.6 g/dL (13.0-17.5); LYMPH # 2.1 x10^3/uL (1.0-4.8); LYMPH % 23 % (24-48); MEAN CORPUSCULAR HEMOGLOBIN 30 pg (25-35); MEAN CORPUSCULAR HGB CONC 33 g/dL (31-37); MEAN CORPUSCULAR VOLUME 89 fL (79-100); MONO # 0.9 x10^3/uL (0.0-1.1); MONO % 10 % (0-9); NEUT # 6.2 x10^3uL (1.8-7.7); NEUT % 67 % (31-73); NITRITE,URINE NEG (NEG); PLATELET COUNT 394 x10^3/uL (140-400); RBC,URINE 0 /HPF (0-2); RED BLOOD COUNT 4.91 x10^6/uL (4.30-5.70); RED CELL DISTRIBUTION WIDTH 14.8 % (11.5-14.5); SQUAMOUS EPITHELIAL CELL,UR OCC /LPF; UROBILINOGEN,URINE 1 mg/dL (0.2 mg/dL); WBC,URINE OCC /HPF (0-4); WHITE BLOOD COUNT 9.3 x10^3/uL (4.0-11.0)
[2019-04-05] MEDS ORDERED: DOXYCYCLINE HYCLATE 100 MG TABLET PO ONE (21:30)
[2019-04-05] MEDS ORDERED: ALBUTEROL SULFATE 8GM INHALER. INH ONE (21:30)
[2019-04-05] MEDS ORDERED: methylPREDNISolone SOD SUCC PF 125 MG/2 ML VIAL. IV ONE (21:30)
--- NOTE | 2019-04-05 21:32 | RAD ---
Exam: Chest 2 views abdomen 2 views INDICATION: Abdomen pain, cough TECHNIQUE: Frontal and lateral views of the chest. Upright and supine views of the abdomen Comparisons: None FINDINGS: The cardiomediastinal silhouette and pulmonary vessels are within normal limits. Patchy airspace disease in the lingula. Remaining lungs are clear. Air and stool are seen throughout the colon to the level of the rectum in a nonobstructive bowel gas pattern. IMPRESSION: 1. Airspace disease in the lingula favored to represent pneumonia. 2. Nonobstructive bowel gas pattern. Electronically signed by: Eric Lindsay MD (04/05/2019 9:29 PM) [facility]
[2019-04-05 21:33] LABS: AMPHETAMINE/METHAMPHETAMINE NEG (NEG); BARBITURATES NEG (NEG); BENZODIAZEPINES NEG (NEG); CANNABINOIDS NEG (NEG); COCAINE NEG (NEG); METHADONE NEG (NEG); OPIATES NEG (NEG); PHENCYCLIDINE NEG (NEG)
[2019-04-05 21:44] LABS: ALBUMIN 3.9 g/dL (3.4-5.0); CALCIUM 9.6 mg/dL (8.5-10.1); CREATININE 0.9 mg/dL (0.7-1.3); DIRECT BILIRUBIN 0.2 mg/dL (0.0-0.2); GFR 89.7; POTASSIUM 4.4 mmol/L (3.5-5.1); TOTAL BILIRUBIN 0.6 mg/dL (0.2-1.0); TOTAL PROTEIN 7.7 g/dL (6.4-8.2)
[2019-04-05] MEDS ORDERED: PRED50TA PO (21:47)
[2019-04-05] MEDS ORDERED: DOXY100T9 PO (21:47)
[2019-04-05 22:03] VITALS: BP 121/78
--- NOTE | 2019-04-06 10:23 | EKG ---
[address] [address] Test Date: 2019-04-05 Test Time: 21:34:06 Pat Name: YOJANA KHALIL Department: Room: Gender: M Manager Exchange: VINNIE : 1970 Requested By: MAGUI JONES Order Number: [id number] Reading MD: Measurements Intervals [place] Rate: 105 P: 44 FL: 148 QRS: 80 QRSD: 82 T: 59 QT: 308 QTc: 411 Interpretive Statements SINUS TACHYCARDIA QRS(T) CONTOUR ABNORMALITY CONSIDER ANTEROLATERAL MYOCARDIAL DAMAGE POSSIBLY ABNORMAL ECG RI6.01 No previous ECG available for comparison
[2019-04-10 13:22] LABS: HCV ULTRA QUANT PCR 348000 IU/mL (.)
== END 2019-04-05 22:04 | disposition home or self-care (01) ==
LOC: ER 20:55
DX: J44.0 Chronic obstructive pulmonary disease with (acute) lower respiratory infection (principal); J18.8 Other pneumonia, unspecified organism; R79.89 Other specified abnormal findings of blood chemistry; F17.210 Nicotine dependence, cigarettes, uncomplicated; R74.0 Nonspecific elevation of levels of transaminase and lactic acid dehydrogenase [LDH]; Z88.0 Allergy status to penicillin
CPT/HCPCS: 36415; 71046; 74019; 80048; 80076; 80307; 81001; 82550; 83690; 84484; 85025; 85379; 85610; 85730; 86705; 86709; 86803; 87340; 87521; 93005; 94640; 96374; 96375; 99285; J1885; J2405; J2930; J3490; J7120; J7613